=== PATIENT | female | born 1995 | race Caucasian/White ===

== ENCOUNTER → 2022-10-08 | Outpatient (CLI) | payer OTHER ==
[2022-10-09 13:40] LABS: Candida species (DNA Probe) Positive (NEGATIVE); G. vaginalis (DNA Probe) Positive (NEGATIVE); T. vaginalis (DNA Probe) Negative (NEGATIVE)
[2022-10-10 09:08] LABS: HBSAG SCREEN Negative (Negative); HCV ANTIBODY Non Reactive (Non Reactive); HIV AB/P24 AG SCREEN Non Reactive (Non Reactive)
== END | disposition home or self-care (01) ==
LOC: LAB SHORT 17:56
PROVIDERS: Registered Nurse Community Health
DX: Z11.3 Encounter for screening for infections with a predominantly sexual mode of transmission (principal); N89.8 Other specified noninflammatory disorders of vagina
CPT/HCPCS: 86592; 86803; 87340; 87389; 87480; 87510; 87660

== ENCOUNTER → 2023-01-26 | Outpatient (CLI) | payer OTHER ==
[2023-01-27 10:25] LABS: Candida species (DNA Probe) Negative (NEGATIVE); G. vaginalis (DNA Probe) Positive (NEGATIVE); T. vaginalis (DNA Probe) Negative (NEGATIVE)
== END ==
LOC: LAB SHORT 08:30 → LAB 08:30
PROVIDERS: Physician Assistant
DX: Z01.419 Encounter for gynecological examination (general) (routine) without abnormal findings (principal); N39.0 Urinary tract infection, site not specified; Z72.51 High risk heterosexual behavior
CPT/HCPCS: 87077; 87086; 87186; 87480; 87510; 87660

== ENCOUNTER 2023-06-09 11:42 | Day surgery (SDC) | payer OTHER ==
[~2023-06-09] VITALS: Ht 165.1 cm; Wt 74.0 kg
[2023-06-09] MEDS ORDERED: ESCI20 PO (12:12)
--- NOTE | 2023-06-09 13:01 | NUR ---
06/09/23 1301 Sylvia Bell SCOPOLAMINE PATCH PLACED BEHIND L EAR IMMEDIATELY PRIOR TO TRANSFER TO OR PER ORDER FROM DR RIZO.
--- NOTE | 2023-06-09 13:18 | NUR ---
06/09/23 1318 Roosevelt Mackenzie ROPIVACAINE 0.5% 10 MLS MIXED & VERIFIED W/ EPI 0.05 ML (1MG/ML), PER ORDER, TO MAKE ROPIVACAINE 0.5% 1:200,000 FOR INJECTION AT OPSITE BY DR DONAHUE.
[2023-06-09 14:23] VITALS: BP 125/72
== END 2023-06-09 15:15 | disposition home or self-care (01) ==
LOC: ORSCSDS 11:42
PROVIDERS: Obstetrics & Gynecology
PROC: 0UT74ZZ Resection of Bilateral Fallopian Tubes, Percutaneous Endoscopic Approach (ICD-10-PCS; principal; 2023-06-09 13:00)
DX: Z30.2 Encounter for sterilization (principal); F17.210 Nicotine dependence, cigarettes, uncomplicated
CPT/HCPCS: 88302; A9270; J0171; J0330; J1100; J1885; J2250; J2405; J2704; J2710; J2795; J3010; J7120

== ENCOUNTER → 2023-06-23 | Outpatient (CLI) | payer OTHER ==
[~2023-06-23] MED LIST: ESCI20 PO
[2023-06-23 15:26] LABS: Candida species (DNA Probe) Positive (NEGATIVE); G. vaginalis (DNA Probe) Positive (NEGATIVE); T. vaginalis (DNA Probe) Negative (NEGATIVE)
== END ==
LOC: LAB SHORT 11:37 → LAB 11:37
PROVIDERS: Obstetrics & Gynecology
DX: N76.0 Acute vaginitis (principal)
CPT/HCPCS: 87480; 87510; 87660

== ENCOUNTER 2023-12-28 01:38 | Day surgery (SDC) | payer OTHER ==
[2023-12-28] MEDS ORDERED: Silver Sulfadiazine 1% Cream 25 APPLIC/25 GM Tube ONE (11:47)
== END 2023-12-28 22:56 | disposition home or self-care (01) ==
LOC: WOUND 01:38
DX: T23.202A Burn of second degree of left hand, unspecified site, initial encounter (principal); T23.201A Burn of second degree of right hand, unspecified site, initial encounter; F17.290 Nicotine dependence, other tobacco product, uncomplicated; Z88.0 Allergy status to penicillin; Z91.040 Latex allergy status
CPT/HCPCS: A9270; G0463

== ENCOUNTER 2024-01-02 03:19 | Day surgery (SDC) | payer OTHER ==
[2024-01-02] MEDS ORDERED: Silver Sulfadiazine 1% Cream 25 APPLIC/25 GM Tube ONE (08:03)
== END 2024-01-02 23:13 | disposition home or self-care (01) ==
LOC: WOUND 03:19
DX: T23.202A Burn of second degree of left hand, unspecified site, initial encounter (principal); T23.201A Burn of second degree of right hand, unspecified site, initial encounter
CPT/HCPCS: A9270

== ENCOUNTER 2024-01-16 06:44 | Day surgery (SDC) | payer OTHER | END 2024-01-16 23:58 | disposition home or self-care (01) | LOC: WOUND 06:44 | DX: T23.251D Burn of second degree of right palm, subsequent encounter (principal); T23.252D Burn of second degree of left palm, subsequent encounter; X08.8XXD Exposure to other specified smoke, fire and flames, subsequent encounter | CPT/HCPCS: G0463 ==

== ENCOUNTER → 2024-03-06 | Outpatient (CLI) | payer OTHER ==
[2024-03-06 14:34] LABS: BASOPHILS ABSOLUTE AUTO 0.06 K/mm3 (0.00-0.23); BASOPHILS PERCENT AUTO 1 % (0-2); EOSINOPHILS ABSOLUTE AUTO 0.14 K/mm3 (0.00-0.68); EOSINOPHILS PERCENT AUTO 1 % (0-6); Hematocrit 41.2 % (33.0-51.0); IMMATURE GRAN ABSOLUTE AUTO 0.05 K/mm3 (0.00-0.10); IMMATURE GRAN PERCENT AUTO 0 % (0-1); LYMPHOCYTES ABSOLUTE AUTO 1.72 K/mm3 (0.84-5.20); LYMPHOCYTES PERCENT AUTO 14 % (21-46); MONOCYTES ABSOLUTE AUTO 0.83 K/mm3 (0.16-1.47); MONOCYTES PERCENT AUTO 7 % (4-13); Mean Corpuscular HGB 31.6 pg (26.0-34.0); Mean Corpuscular Volume 93 fL (80-100); Mean Platelet Volume 9.6 fL (9.1-12.4); NEUTROPHILS ABSOLUTE AUTO 9.49 K/mm3 (1.96-9.15); NEUTROPHILS PERCENT AUTO 77 % (41-73); Platelet Count 326 K/mm3 (150-400); RDW Coefficient Variation 12.9 % (11.7-14.2); RDW Standard Deviation 44.2 fL (35.1-46.3); Red Blood Cell Count 4.43 M/mm3 (3.80-5.20); White Blood Cell Count 12.29 K/mm3 (4.00-11.30)
[2024-03-06 14:48] LABS: Albumin, Blood 3.7 g/dL (3.4-5.0); Bilirubin, Total 0.3 mg/dL (0.1-1.0); Bun/Creatinine Ratio 8.2 (12.0-20.0); Creatinine, Blood 0.73 mg/dL (0.40-1.00); Globulin, Blood 3.8 g/dL (2.2-4.0); Potassium, Blood 3.9 mmol/L (3.5-5.5); Total Protein, Blood 7.5 g/dL (6.4-8.2)
== END ==
LOC: LAB SHORT 14:28 → LAB 14:28
PROVIDERS: Chiropractor
DX: R10.84 Generalized abdominal pain (principal)
CPT/HCPCS: 80053; 83690; 85025

== ENCOUNTER → 2024-03-07 | Outpatient (CLI) | payer OTHER ==
[2024-03-07 15:53] LABS: BASOPHILS ABSOLUTE AUTO 0.04 K/mm3 (0.00-0.23); BASOPHILS PERCENT AUTO 0 % (0-2); EOSINOPHILS ABSOLUTE AUTO 0.12 K/mm3 (0.00-0.68); EOSINOPHILS PERCENT AUTO 1 % (0-6); Hematocrit 39.4 % (33.0-51.0); Hemoglobin 13.3 g/dL (11.5-16.0); IMMATURE GRAN ABSOLUTE AUTO 0.04 K/mm3 (0.00-0.10); IMMATURE GRAN PERCENT AUTO 0 % (0-1); LYMPHOCYTES ABSOLUTE AUTO 2.09 K/mm3 (0.84-5.20); LYMPHOCYTES PERCENT AUTO 17 % (21-46); MONOCYTES ABSOLUTE AUTO 0.85 K/mm3 (0.16-1.47); MONOCYTES PERCENT AUTO 7 % (4-13); Mean Corpuscular HGB 31.5 pg (26.0-34.0); Mean Corpuscular HGB Conc 33.8 g/dL (31.5-36.5); Mean Corpuscular Volume 93 fL (80-100); Mean Platelet Volume 9.6 fL (9.1-12.4); NEUTROPHILS ABSOLUTE AUTO 9.31 K/mm3 (1.96-9.15); NEUTROPHILS PERCENT AUTO 75 % (41-73); Platelet Count 311 K/mm3 (150-400); RDW Coefficient Variation 12.9 % (11.7-14.2); RDW Standard Deviation 43.8 fL (35.1-46.3); Red Blood Cell Count 4.22 M/mm3 (3.80-5.20); White Blood Cell Count 12.45 K/mm3 (4.00-11.30)
[2024-03-07 16:04] LABS: Albumin, Blood 3.5 g/dL (3.4-5.0); Albumin/Globulin Ratio 0.9 (0.8-1.8); Bilirubin, Total 0.2 mg/dL (0.1-1.0); Bun/Creatinine Ratio 11.8 (12.0-20.0); Calcium, Blood 9.1 mg/dL (8.5-10.1); Creatinine, Blood 0.68 mg/dL (0.40-1.00); Globulin, Blood 3.8 g/dL (2.2-4.0); Potassium, Blood 3.6 mmol/L (3.5-5.5); Total Protein, Blood 7.3 g/dL (6.4-8.2)
== END ==
LOC: LAB 15:48 → LAB SHORT 15:48
PROVIDERS: Chiropractor
DX: R06.00 Dyspnea, unspecified (principal)
CPT/HCPCS: 80053; 83690; 84484; 85025; 85379

== ENCOUNTER → 2024-03-09 | Outpatient (CLI) | payer OTHER ==
[2024-03-09 17:17] LABS: Adenovirus F 40/41 Not Detected (NOT DETECT); Astrovirus Not Detected (NOT DETECT); Campylobacter Sp Not Detected (NOT DETECT); Cryptosporidium Not Detected (NOT DETECT); Cyclospora Cayetanensis Not Detected (NOT DETECT); E. Coli O157 Not Detected (NOT DETECT); Entamoeba Histolytica Not Detected (NOT DETECT); Enteroaggregative E. coli-EAEC Not Detected (NOT DETECT); Enteropathogenic E. coli-EPEC Not Detected (NOT DETECT); Enterotoxigenic E. coli-ETEC Not Detected (NOT DETECT); Giardia Lamblia Not Detected (NOT DETECT); Norovirus GI/GII Not Detected (NOT DETECT); Plesiomonas Shigelloides Not Detected (NOT DETECT); Rotavirus A Not Detected (NOT DETECT); Salmonella Sp Not Detected (NOT DETECT); Sapovirus Not Detected (NOT DETECT); Shiga Toxin-prod E. coli-STEC Not Detected (NOT DETECT); Shigella/Enteroin E. coli-EIEC Not Detected (NOT DETECT); Vibrio Cholerae Not Detected (NOT DETECT); Vibrio Sp Not Detected (NOT DETECT); Yersinia Enterocolitica Not Detected (NOT DETECT)
[2024-03-13 02:43] LABS: CALPROTECTIN,FECAL 459 ug/g (<=49)
== END ==
LOC: LAB 14:38 → LAB SHORT 14:38
PROVIDERS: Chiropractor
DX: K50.00 Crohn's disease of small intestine without complications (principal); R19.7 Diarrhea, unspecified
CPT/HCPCS: 83993; 87324; 87507

== ENCOUNTER 2024-03-16 07:00 | Day surgery (SDC) | payer OTHER ==
[~2024-03-16] VITALS: Ht 165.1 cm; Wt 78.5 kg
[2024-03-16] MEDS ORDERED: VANCOMYCIN1.25 GM/24 (07:23)
[2024-03-16] MEDS ORDERED: propofoL 50 ML IV ONE (07:48)
[2024-03-16] MEDS ORDERED: Lidocaine HCl/Pf 1% 5 ML VIAL ONE (07:48)
[2024-03-16] MEDS ORDERED: Lactated Ringer's 1,000 ML IV ONE ×2 (07:48→08:05)
[2024-03-16 09:10] VITALS: BP 131/90
--- NOTE | 2024-03-16 09:46 | NUR ---
03/16/24 0946 Kendall Finch PT INSTRUCTED TO STOP ALL NSAIDS AND VANCOMYCIN
== END 2024-03-16 09:45 | disposition home or self-care (01) ==
LOC: ORSCSDS 07:00
PROVIDERS: Internal Medicine Gastroenterology
PROC: 0DB68ZX Excision of Stomach, Via Natural or Artificial Opening Endoscopic, Diagnostic (ICD-10-PCS; principal; 2024-03-16 08:15)
PROC: 0DBE8ZX Excision of Large Intestine, Via Natural or Artificial Opening Endoscopic, Diagnostic (ICD-10-PCS; principal; 2024-03-16 08:15)
DX: R10.84 Generalized abdominal pain (principal); R93.3 Abnormal findings on diagnostic imaging of other parts of digestive tract; K52.9 Noninfective gastroenteritis and colitis, unspecified; R13.10 Dysphagia, unspecified; K29.70 Gastritis, unspecified, without bleeding; F17.210 Nicotine dependence, cigarettes, uncomplicated; Z79.899 Other long term (current) drug therapy
CPT/HCPCS: 88305; 88342; J2001; J2704; J7120

== ENCOUNTER → 2024-06-29 | Outpatient (CLI) | payer OTHER ==
[~2024-06-29] MED LIST changes: +VANCOMYCIN1.25 GM/24
[2024-06-30 09:40] LABS: Candida glabrata-krusei, PCR NOT DETECTED (NOT DETECT)
[2024-06-30 10:06] LABS: Bacterial Vaginosis PCR Positive (NEGATIVE); Candida Group, PCR DETECTED (NOT DETECT)
[2024-07-10 10:50] LABS: HPV GENOTYPE 16 BY TMA Not Detected; HPV GENOTYPE 18/45 BY TMA Not Detected; HPV HIGH RISK BY TMA Detected; HPV SOURCE Cervical; HPVG SOURCE Cervical
== END ==
LOC: LAB 17:00 → LAB SHORT 17:00
PROVIDERS: Obstetrics & Gynecology
DX: N89.8 Other specified noninflammatory disorders of vagina (principal)
CPT/HCPCS: 81515; 87624; 87625; G0123

== ENCOUNTER → 2024-08-27 | Outpatient (CLI) | payer OTHER | END | disposition home or self-care (01) | LOC: LAB SHORT 07:36 → PLD 07:36 | DX: R87.613 High grade squamous intraepithelial lesion on cytologic smear of cervix (HGSIL) (principal); R87.610 Atypical squamous cells of undetermined significance on cytologic smear of cervix (ASC-US); R87.810 Cervical high risk human papillomavirus (HPV) DNA test positive | CPT/HCPCS: 88305 ==

== ENCOUNTER 2024-10-15 12:27 | Day surgery (SDC) | payer OTHER ==
[~2024-10-15] VITALS: Ht 165.1 cm; Wt 86.2 kg
[~2024-10-15 12:27] MED LIST changes: +Lactated Ringer's 1,000 ML IV ONE; +propofoL 50 ML IV ONE
[2024-10-15] MEDS ORDERED: Lactated Ringer's 1,000 ML IV ONE (13:52)
[2024-10-15 14:57] VITALS: BP 135/89
--- NOTE | 2024-10-15 14:59 | NUR ---
10/15/24 1457 ROSEANNA SOMMER MULTIPLE SORES:HANDS,ARMS,ANKLES AND FACE AT DIFFERING STAGES OF HEALING-PT STATES SKIN ISSUES RESULT OF "SUN ALLERGY" END NOTE RDS.
== END 2024-10-15 14:56 | disposition home or self-care (01) ==
LOC: ORSCSDS 12:27
PROVIDERS: Internal Medicine Gastroenterology
PROC: 0DJD8ZZ Inspection of Lower Intestinal Tract, Via Natural or Artificial Opening Endoscopic (ICD-10-PCS; principal; 2024-10-15 14:15)
DX: R10.84 Generalized abdominal pain (principal); R93.3 Abnormal findings on diagnostic imaging of other parts of digestive tract; A04.72 Enterocolitis due to Clostridium difficile, not specified as recurrent; F17.210 Nicotine dependence, cigarettes, uncomplicated; Z79.899 Other long term (current) drug therapy
CPT/HCPCS: J2704; J7120

== ENCOUNTER → 2024-12-13 | Outpatient (CLI) | payer OTHER ==
[~2024-12-13] MED LIST changes: -Lactated Ringer's 1,000 ML IV ONE; -propofoL 50 ML IV ONE
[2024-12-13 16:32] LABS: Candida Group, PCR NOT DETECTED (NOT DETECT); Candida glabrata-krusei, PCR NOT DETECTED (NOT DETECT)
[2024-12-13 16:41] LABS: Bacterial Vaginosis PCR Positive (NEGATIVE)
== END ==
LOC: LAB SHORT 14:13 → LAB 14:13
PROVIDERS: Obstetrics & Gynecology
DX: T81.41XA Infection following a procedure, superficial incisional surgical site, initial encounter (principal)
CPT/HCPCS: 81515; 87070; 87075; 87205

== ENCOUNTER 2025-01-24 08:28 | Day surgery (SDC) | payer OTHER ==
[~2025-01-24] VITALS: Ht 165.1 cm; Wt 85.1 kg
[2025-01-24] MEDS ORDERED: BUPR75 (09:18)
[2025-01-24] MEDS ORDERED: TRAZ50 (09:18)
[2025-01-24] MEDS ORDERED: PANT20 (09:18)
[2025-01-24] MEDS ORDERED: Ondansetron HCl 2 MG / ML 2ML Vial ONE (09:47)
[2025-01-24 10:03] VITALS: BP 122/76
== END 2025-01-24 10:11 | disposition home or self-care (01) ==
LOC: ORSCSDS 08:28
PROVIDERS: Specialist
PROC: 0DB98ZX Excision of Duodenum, Via Natural or Artificial Opening Endoscopic, Diagnostic (ICD-10-PCS; principal; 2025-01-24 12:45)
PROC: 0D758ZZ Dilation of Esophagus, Via Natural or Artificial Opening Endoscopic (ICD-10-PCS; principal; 2025-01-24 12:45)
PROC: 0DB58ZX Excision of Esophagus, Via Natural or Artificial Opening Endoscopic, Diagnostic (ICD-10-PCS; principal; 2025-01-24 12:45)
PROC: 0F9G8ZZ Drainage of Pancreas, Via Natural or Artificial Opening Endoscopic (ICD-10-PCS; principal; 2025-01-24 12:45)
DX: R13.10 Dysphagia, unspecified (principal); K21.00 Gastro-esophageal reflux disease with esophagitis, without bleeding; R10.84 Generalized abdominal pain; R19.7 Diarrhea, unspecified; K22.2 Esophageal obstruction; K44.9 Diaphragmatic hernia without obstruction or gangrene; F17.210 Nicotine dependence, cigarettes, uncomplicated; Z79.899 Other long term (current) drug therapy
CPT/HCPCS: 88305; 88312; C1769; J2405; J2704; J7120

== ENCOUNTER → 2025-04-02 | Outpatient (CLI) | payer OTHER ==
[~2025-04-02] MED LIST changes: +BUPR75; +PANT20; +TRAZ50
[2025-04-02 12:26] LABS: BASOPHILS ABSOLUTE AUTO 0.07 K/mm3 (0.00-0.23); BASOPHILS PERCENT AUTO 1 % (0-2); EOSINOPHILS ABSOLUTE AUTO 0.43 K/mm3 (0.00-0.68); EOSINOPHILS PERCENT AUTO 3 % (0-6); Hematocrit 41.7 % (33.0-51.0); Hemoglobin 14.4 g/dL (11.5-16.0); IMMATURE GRAN ABSOLUTE AUTO 0.06 K/mm3 (0.00-0.10); IMMATURE GRAN PERCENT AUTO 1 % (0-1); LYMPHOCYTES ABSOLUTE AUTO 1.93 K/mm3 (0.84-5.20); LYMPHOCYTES PERCENT AUTO 15 % (21-46); MONOCYTES ABSOLUTE AUTO 0.81 K/mm3 (0.16-1.47); MONOCYTES PERCENT AUTO 6 % (4-13); Mean Corpuscular HGB Conc 34.5 g/dL (31.5-36.5); Mean Corpuscular Volume 92 fL (80-100); NEUTROPHILS ABSOLUTE AUTO 9.50 K/mm3 (1.96-9.15); NEUTROPHILS PERCENT AUTO 74 % (41-73); NRBC ABSOLUTE 0.00 K/mm3 (0.00-0.02); NRBC Auto 0.0 /100 WBC (0.0-0.2); Platelet Count 297 K/mm3 (150-400); RDW Coefficient Variation 12.9 % (11.7-14.2); RDW Standard Deviation 43.9 fL (35.1-46.3)
[2025-04-02 12:37] LABS: Alanine Aminotransfer (ALT/SGP 43.0 U/L (12-78); Albumin, Blood 3.9 g/dL (3.4-5.0); Albumin/Globulin Ratio 1.0 (0.8-1.8); Anion Gap 15.0 mmol/L (3-11); Aspartate Aminotrans (AST/SGOT 28.0 U/L (12-37); Bilirubin, Total 0.4 mg/dL (0.1-1.0); Blood Urea Nitrogen 9.0 mg/dL (8-24); CO2, Blood 23.0 mmol/L (21-32); Calcium, Blood 9.0 mg/dL (8.5-10.1); Chloride, Blood 103.0 mmol/L (98-108); Creatinine, Blood 0.58 mg/dL (0.40-1.00); Globulin, Blood 4.0 g/dL (2.2-4.0); Glucose, Blood 96.0 mg/dL (70-99); Potassium, Blood 4.2 mmol/L (3.5-5.5); Sodium, Blood 137.0 mmol/L (136-145); Total Protein, Blood 7.9 g/dL (6.4-8.2)
== END ==
LOC: LAB SHORT 12:21 → LAB 12:21
PROVIDERS: Chiropractor
DX: R10.13 Epigastric pain (principal)
CPT/HCPCS: 80053; 83690; 85025

== ENCOUNTER → 2025-06-06 | Outpatient (CLI) | payer OTHER ==
[~2025-06-06] MED LIST changes: +Atarax10 MG; +DUPIXENT
== END ==
LOC: LAB SHORT 18:10 → LAB 18:10
PROVIDERS: Family Medicine
DX: Z01.419 Encounter for gynecological examination (general) (routine) without abnormal findings (principal)
CPT/HCPCS: 87624; G0145